=== PATIENT | female | born 1930 | race Caucasian/White ===

== ENCOUNTER → 2018-09-07 | Outpatient (CLI) | payer MEDICARE, OTHER ==
[~2018-09-07] MED LIST: LIDO5TP TOP; Ultram50 MG PO
== END | disposition home or self-care (01) ==
LOC: LAB EV 17:08 → LAB SHORT 17:08
DX: N39.0 Urinary tract infection, site not specified (principal)
CPT/HCPCS: 87077; 87086; 87186

== ENCOUNTER → 2019-03-14 | Outpatient (CLI) | payer MEDICARE, OTHER ==
[~2019-03-14] MED LIST changes: +DONE5; +Florastor250 MG PO; +MELATONIN5 M1 PO; +OLAN5 PO; +VITS
[2019-03-19 14:06] LABS: Stool Occult Bld Immuno 1 Negative (NEGATIVE)
== END | disposition home or self-care (01) ==
LOC: LAB SHORT 15:12 → LAB 15:12 → EDSTATUS 12-27 20:00 → LAB FUT 12-27 20:00
PROVIDERS: Internal Medicine
DX: E61.1 Iron deficiency (principal)
CPT/HCPCS: 82274

== ENCOUNTER → 2019-03-16 | Outpatient (CLI) | payer MEDICARE, OTHER | LOC: LAB SHORT 18:21 → LAB 18:21 | DX: N39.0 Urinary tract infection, site not specified (principal) | CPT/HCPCS: 87086 ==

== ENCOUNTER → 2019-05-01 | Outpatient (CLI) | payer MEDICARE, OTHER | END | disposition home or self-care (01) | LOC: LAB SHORT 18:11 → LAB EV 18:11 | DX: N39.0 Urinary tract infection, site not specified (principal) | CPT/HCPCS: 87077; 87086; 87186 ==

== ENCOUNTER → 2019-05-09 | Outpatient (CLI) | payer MEDICARE, OTHER ==
[2019-05-09 16:30] LABS: BASOPHILS ABSOLUTE AUTO 0.03 K/mm3 (0.00-0.23); BASOPHILS PERCENT AUTO 0 % (0-2); EOSINOPHILS PERCENT AUTO 0 % (0-6); Hematocrit 41.8 % (33.0-51.0); Hemoglobin 13.7 g/dL (11.5-16.0); IMMATURE GRAN PERCENT AUTO 1 % (0-1); LYMPHOCYTES ABSOLUTE AUTO 3.27 K/mm3 (0.84-5.20); LYMPHOCYTES PERCENT AUTO 18 % (21-46); MONOCYTES ABSOLUTE AUTO 1.12 K/mm3 (0.16-1.47); MONOCYTES PERCENT AUTO 6 % (4-13); Mean Corpuscular HGB 27.7 pg (26.0-34.0); Mean Corpuscular HGB Conc 32.8 g/dL (31.5-36.5); Mean Corpuscular Volume 84 fL (80-100); Mean Platelet Volume 9.2 fL (9.1-12.4); NEUTROPHILS ABSOLUTE AUTO 13.85 K/mm3 (1.96-9.15); NEUTROPHILS PERCENT AUTO 75 % (41-73); Platelet Count 424 K/mm3 (150-400); RDW Coefficient Variation 14.6 % (11.7-14.2); RDW Standard Deviation 44.5 fL (35.1-46.3); Red Blood Cell Count 4.95 M/mm3 (3.80-5.20); White Blood Cell Count 18.37 K/mm3 (4.00-11.30)
[2019-05-09 17:08] LABS: Albumin, Blood 2.9 g/dL (3.4-5.0); Albumin/Globulin Ratio 0.7 (0.8-1.8); Bilirubin, Total 0.4 mg/dL (0.1-1.0); Bun/Creatinine Ratio 15.7 (12.0-20.0); Calcium, Blood 9.1 mg/dL (8.5-10.1); Creatinine, Blood 1.02 mg/dL (0.40-1.00); Globulin, Blood 4.4 g/dL (2.2-4.0); Potassium, Blood 3.3 mmol/L (3.5-5.5); Total Protein, Blood 7.3 g/dL (6.4-8.2)
[2019-05-10 10:13] LABS: C DIFFICILE BY DNA AMP Positive (Negative)
== END | disposition home or self-care (01) ==
LOC: LAB EV 16:23 → LAB SHORT 16:23
PROVIDERS: Physician Assistant Medical
DX: R19.7 Diarrhea, unspecified (principal)
CPT/HCPCS: 80053; 85025; 87324; 87493

== ENCOUNTER → 2019-05-10 | Outpatient (CLI) | payer MEDICARE, OTHER ==
[2019-05-10 12:09] LABS: BASOPHILS ABSOLUTE AUTO 0.01 K/mm3 (0.00-0.23); BASOPHILS PERCENT AUTO 0 % (0-2); EOSINOPHILS PERCENT AUTO 2 % (0-6); Hematocrit 36.1 % (33.0-51.0); Hemoglobin 11.5 g/dL (11.5-16.0); IMMATURE GRAN ABSOLUTE AUTO 0.03 K/mm3 (0.00-0.10); IMMATURE GRAN PERCENT AUTO 0 % (0-1); LYMPHOCYTES ABSOLUTE AUTO 2.67 K/mm3 (0.84-5.20); LYMPHOCYTES PERCENT AUTO 21 % (21-46); MONOCYTES ABSOLUTE AUTO 0.85 K/mm3 (0.16-1.47); MONOCYTES PERCENT AUTO 7 % (4-13); Mean Corpuscular HGB 27.6 pg (26.0-34.0); Mean Corpuscular HGB Conc 31.9 g/dL (31.5-36.5); Mean Platelet Volume 8.9 fL (9.1-12.4); NEUTROPHILS ABSOLUTE AUTO 8.89 K/mm3 (1.96-9.15); NEUTROPHILS PERCENT AUTO 70 % (41-73); Platelet Count 375 K/mm3 (150-400); RDW Coefficient Variation 14.6 % (11.7-14.2); RDW Standard Deviation 46.5 fL (35.1-46.3); Red Blood Cell Count 4.17 M/mm3 (3.80-5.20); White Blood Cell Count 12.65 K/mm3 (4.00-11.30)
[2019-05-10 12:12] LABS: Mean Corpuscular Volume 87 fL (80-100)
[2019-05-10 12:15] LABS: Bun/Creatinine Ratio 9.7 (12.0-20.0); Calcium, Blood 8.6 mg/dL (8.5-10.1); Creatinine, Blood 1.03 mg/dL (0.40-1.00); Potassium, Blood 3.1 mmol/L (3.5-5.5)
== END ==
LOC: LAB SHORT 12:04 → LAB EV 12:04
PROVIDERS: Family Medicine
DX: A04.72 Enterocolitis due to Clostridium difficile, not specified as recurrent (principal)
CPT/HCPCS: 80048; 85025

== ENCOUNTER 2019-06-04 00:54 | Emergency (ER) | payer MEDICARE, OTHER ==
[~2019-06-04] VITALS: Ht 154.9 cm; Wt 52.6 kg
[~2019-06-04 00:54] MED LIST changes: -DONE5; -Florastor250 MG PO; -MELATONIN5 M1 PO; -OLAN5 PO; -VITS
[2019-06-04] MEDS ORDERED: OLAN5 PO (01:19)
[2019-06-04] MEDS ORDERED: MELATONIN5 M1 PO (01:19)
[2019-06-04] MEDS ORDERED: DONE5 (01:19)
[2019-06-04] MEDS ORDERED: VITS (01:20)
[2019-06-04] MEDS ORDERED: Florastor250 MG PO (01:20)
[2019-06-04 02:32] LABS: C DIFFICILE BY DNA AMP Positive (Negative)
== END 2019-06-04 03:33 | disposition left against medical advice (07) ==
LOC: ER 00:54
PROVIDERS: Emergency Medicine
DX: Z53.21 Procedure and treatment not carried out due to patient leaving prior to being seen by health care provider (principal)
CPT/HCPCS: 87324; 87493